=== PATIENT | female | born 1985 | race Caucasian/White ===

== ENCOUNTER → 2017-11-26 14:29 | Outpatient (CLI) | payer OTHER, SELFPAY ==
[2017-11-26 15:11] LABS: Estimated Glomerular Filt Rate > 60.0 mL/min (>60)
--- NOTE | 2017-11-26 15:16 | DI.CT.S_ITS ---
PROCEDURE: CT ABDOMEN PELVIS W CON INDICATIONS: Evaluation of acute pelvic pain TECHNIQUE: After the administration of oral and intravenous contrast, 5 mm thick sections acquired from the diaphragms to the symphysis. 5 mm thick coronal and sagittal reformats were performed. For radiation dose reduction, the following was used: automated exposure control, adjustment of mA and/or kV according to patient size. COMPARISON: [facility] [employer] [facility], US, US PELVIC COMPLETE, 11/25/2017, 17:38. FINDINGS: Image quality: Excellent. ABDOMEN: Lung bases: Linear scarring/atelectasis in anterior aspect of left lung base is seen. Bilateral lung bases otherwise clear Heart size is normal. Solid organs: Liver is normal in size and enhancement. Gallbladder is within normal limits. Biliary system is non-dilated. Pancreas enhances normally. Spleen is normal in size and enhancement. No adrenal nodules. Kidneys are normal in size and enhancement, without hydronephrosis. Small bilateral peripelvic renal cysts are seen. Peritoneum and bowel: Stomach, small bowel, and colon loops are normal in caliber and wall thickness. No free fluid or air. Mild fecal stasis in the colon is seen. Appendix is visualized and is within normal limits. Nodes and vessels: No retroperitoneal or mesenteric adenopathy. Aorta and inferior vena cava are normal in caliber. Miscellaneous: No ventral hernias. PELVIS: Genitourinary: Bladder wall thickness is normal. Uterus and bilateral adnexa show no gross abnormality. Miscellaneous: No inguinal hernias or adenopathy. Bones: No suspicious bony lesions. No vertebral body compression fractures. IMPRESSION: 1. No finding to explain patient's clinical symptoms of worsening pelvic pain. 2. No acute inflammatory process within abdomen or pelvis. No free fluid or free air. Dictated by: Albert eHr M.D. on 11/27/2017 at 9:00 Approved by: Albert Her M.D. on 11/27/2017 at 9:03
== END ==
PROVIDERS: Family Provider Family Medicine; PCP Family Medicine; Visit Provider Obstetrics & Gynecology
DX: R10.2 Pelvic and perineal pain (principal); R10.31 Right lower quadrant pain
CPT/HCPCS: 36415; 74177; 82565; Q9967

== ENCOUNTER → 2017-11-27 14:32 | Outpatient (CLI) | payer OTHER, SELFPAY ==
[2017-11-27 14:52] LABS: Add Manual Diff / Slide Review NO; Eosinophils Percent Auto 1.8 % (2-4); Hematocrit 42.6 % (36-46); Hemoglobin 14.3 g/dL (12.0-16.0); Lymphocytes Percent Auto 30.9 % (25-40); Mean Corpuscular HGB Conc 33.5 % (30-36); Mean Corpuscular Hemoglobin 30.7 PG (26-34); Mean Corpuscular Volume 91.5 fL (80-100); Monocytes Percent Auto 7.6 % (3-14); Neutrophils Absolute Auto 4600 /uL (3000-5900); Neutrophils Percent Auto 58.7 % (50-75); Platelet Count 328 X10^3/uL (150-400); Red Blood Cell Count 4.65 X10^6/uL (4.0-5.2); Red Cell Distribution Width 13.4 % (11.6-14.8); White Blood Cell Count 7.8 X10^3/uL (4.5-11.0)
== END ==
PROVIDERS: PCP Family Medicine; Visit Provider Obstetrics & Gynecology
DX: R10.13 Epigastric pain (principal)
CPT/HCPCS: 85025

== ENCOUNTER → 2019-09-12 11:57 | Outpatient (CLI) | payer BC, SELFPAY ==
[2019-09-12 12:50] LABS: C-Reactive Protein Quant < 0.5 mg/dL (<1.0)
[2019-09-12 13:03] LABS: Erythrocyte Sedimentation Rate 1 MM/HR (0-20)
[2019-09-12 13:53] LABS: Folate > 20.0 ng/mL (2.76-20.0); Vitamin B12 316 pg/mL (239-931)
[2019-09-12 15:24] LABS: Vitamin D 25 Hydroxy (D3) 42.2 ng/mL (30.0-100.0)
== END ==
PROVIDERS: Family Provider Family Medicine; PCP Family Medicine; Referring Provider Family Medicine; Visit Provider Family Medicine
DX: R53.83 Other fatigue (principal)
CPT/HCPCS: 36415; 82306; 82607; 82746; 85651; 86140

== ENCOUNTER → 2019-10-03 15:38 | Outpatient (CLI) | payer BC, SELFPAY ==
--- NOTE | 2019-10-03 15:41 | DI.MRI.S_ITS ---
PROCEDURE: MR LUMBAR SPINE WO CON INDICATIONS: Progressive low back pain with right lower extremity symptom TECHNIQUE: Noncontrast sagittal T1 spin echo and T2 fast echo, sagittal STIR, axial T1 and T2 fast spin echo through the lumbar spine. In cases with scoliosis, additional coronal T2 fast spin echo may be performed. COMPARISON: [facility], , L-SPINE WITHOUT CONTRAST, 11/24/2016, 15:27. FINDINGS: Image quality: Excellent. Alignment and Curvature: There is normal bony alignment. Bone Marrow: Marrow is of normal overall signal. No acute vertebral body compression fractures. Spinal Cord: Conus medullaris terminates at the L2 level. Visualized cord demonstrates normal signal and size. Paraspinous Soft Tissues: No paravertebral masses. L1-L2: Normal appearance. L2-L3: Normal appearance. L3-L4: Normal appearance. L4-L5: Minimal disc bulge without spinal stenosis or foraminal narrowing. L5-S1: Normal appearance. IMPRESSION: 1. Stable interval exam demonstrating mild disc bulge at L4-5. No spinal stenosis or foraminal narrowing. Dictated by: Olga Linn M.D. on 10/03/2019 at 16:48 Approved by: Olga Linn M.D. on 10/03/2019 at 16:50
--- NOTE | 2019-10-03 15:41 | DI.RAD.S_ITS ---
PROCEDURE: XR LUMBAR SPINE MIN 4V INDICATIONS: Progressive low back pain TECHNIQUE: 5 views of the lumbar spine acquired. COMPARISON: [facility], , L-SPINE MINIMUM 4 VIEWS, 11/17/2016, 12:39. FINDINGS: Bones: 5 nonrib-bearing vertebrae are present. Trace multilevel retrolisthesis. Mild multilevel disc degeneration. No pars interarticularis defect. No vertebral body compression fractures. No suspicious bony lesions. Soft tissues: Overlying bowel gas pattern is normal. No suspicious soft tissue calcifications. IMPRESSION: Trace multilevel retrolisthesis and mild multilevel disc degeneration. Dictated by: Neel Reddy [facility] Interpreted: Omega Sinha MD on 10/03/2019 at 16:34 Approved by: Omega Sinha M.D. on 10/03/2019 at 17:40
== END ==
PROVIDERS: Family Provider Family Medicine; PCP Family Medicine; Referring Provider Physical Medicine & Rehabilitation; Visit Provider Physical Medicine & Rehabilitation
DX: M54.5 Low back pain (principal); R10.2 Pelvic and perineal pain; M47.27 Other spondylosis with radiculopathy, lumbosacral region; M51.16 Intervertebral disc disorders with radiculopathy, lumbar region
CPT/HCPCS: 72110; 72148

== ENCOUNTER → 2019-12-12 13:37 | Outpatient (CLI) | payer BC, SELFPAY ==
[2019-12-13 06:50] LABS: COVID19 Sendout Not Detected (Not Detect)
== END ==
PROVIDERS: Family Provider Family Medicine; PCP Family Medicine; Visit Provider Physician Assistant
DX: Z01.812 Encounter for preprocedural laboratory examination (principal)
CPT/HCPCS: 87635

== ENCOUNTER 2019-12-15 09:59 | Outpatient (CLI) | payer BC, SELFPAY ==
[2019-12-15] VITALS (8 sets, daily range): BP systolic 116–157; BP diastolic 71–104; PULSE 74–90; RESP 10–20; TEMP 36.3; O2SAT 98–100
--- NOTE | 2019-12-15 10:00 | DI.RAD.S_ITS ---
PROCEDURE: PAIN L/S FACET INJ/BLK 1ST BROWN COMPARISON: [facility], CR, XR LUMBAR SPINE MIN 4V, 10/03/2019, 16:08. INDICATIONS: SPONDYLOSIS FINDINGS: On this intraprocedural study, bilateral spinal needles are seen at the L4-5 level and the L5-S1 level. Appropriate positions of the tips of the needles was confirmed with injection of a small amount of iodinated contrast. IMPRESSION: Intraprocedural examination within normal limits. Dictated by: Rodri Julien M.D. on 12/15/2019 at 11:28 Approved by: Rodri Julien M.D. on 12/15/2019 at 11:29
[2019-12-15] MEDS: fentaNYL 100 MCG/2 ML INJ 50 MCG IV (11:11)
[2019-12-15] MEDS: BETAMETHASONE 30 MG/5 ML MDV 12 MG INJ (11:11)
[2019-12-15] MEDS: BUPIVACAINE 0.5% (PF) VIAL 2 ML INJ (11:11)
[2019-12-15] MEDS: LIDOCAINE 1% 20 ML 10 ML INJ (11:11)
[2019-12-15] MEDS: IOPAMIDOL 15 ML VIAL 3 ML INJ (11:11)
[2019-12-15] MEDS: MIDAZOLAM 5 MG/5 ML VIAL IV (11:15)
--- NOTE | 2019-12-15 11:30 | P.PCN_ITS ---
Date/Time/Diagnoses Date of procedure: 12/15/19 Time of procedure: 11:30 Pre-procedure diagnosis: 1. FACET ARTHROPATHY 2. AXIAL LBP 3. MULTILEVEL DDD Post-procedure diagnosis: same Procedure Notes Procedure: 1. FLUOROSCOPICALLY GUIDED CONTRAST CONTROLLED FACET JOINT INJECTIONS BILATERAL L4/5, L5/S1 Indications: Niesha is referred by Dr. Iyer for treatment of Axial LBP Physician: Faraz Connell Total Fluoroscopy time (seconds): 12 Total sedation minutes: 17 Complications: none Procedure in detail & Post-procedure care: FINDINGS Multilevel Facet Arthropathy with Clinically significant axial LBP DESCRIPTION OF PROCEDURE Fluoroscopically guided, contrast-controlled bilateral L4/5, L5/S1 facet joint injections. Following review of allergy and review of potential side effects and complications, including, but not necessarily limited to, infection, allergic reaction, local tissue breakdown, stroke, temporary or permanent nerve injury, paralysis, and possible , the patient indicated that the patient understood and agreed to proceed. An informed consent document was signed by the patient, witnessed by a nurse, and placed in the patient's chart. Additionally, other treatment options including medications, modalities, and physical therapy were reviewed with the patient. After review of previous anaesthesic history and IV conscious sedation the patient was deemed safe to proceed with today?s procedure with IV conscious sedation as ASA class II designation. Safety time-out was performed to confirm patient ID, procedure to be performed and site of procedure. IV sedation was accomplished with a combination of 4mg of Versed and 50mcg of Fentanyl was administered by the RN after DO order, titrated to patient comfort during the course of the procedure while the patient remained responsive to all verbal commands In the prone position, following sterile prep and drape of the lumbar region, the posterior aspect of the L4/5, L5/S1 facet joints were identified fluoroscopically. The skin was anesthetized via a 25-gauge 1.5inch needle with 1% lidocaine solution into the corresponding facet joints. At this point, a 22- gauge 3.5-inch spinal needle was atraumatically introduced and advanced under fluoroscopic guidance into the corresponding facet joints. Following negative aspiration, injections of approximately 0.2cc of Isovue 200 confirmed intera rticular placement without vascular uptake. The identical procedure was then performed at the L4/5, L5/S1 facet joints on the left. Radiological data, including multiple fluoroscopic views of the lumbosacral spine, reveal a spinal needle at the L4/5, L5/S1 facet joints bilaterally. Subsequent views show flow of contrast material both superiorly and inferiorly within the joint space without vascular or intrathecal uptake. At this point, a total of 0.5cc including a mixture of 0.25cc Marcaine and 0.25cc betamethasone was injected without complication into each of the corresponding facet joints. The patient tolerated the procedure well without signs or symptoms of complications prior to transfer to the recovery area continued monitoring without incident. The patient was then transferred to the recovery area where they were observed for an appropriate period of time after the injection. The patient reported a VAS score of 6 prior to the procedure and a post- procedure VAS of 0. POST OP INSTRUCTIONS The patient was provided a Pain Log to continue to record their response to the target-specific procedure prior to follow-up visit with their referring physician. Additionally, specific post-injection care instructions and a contact number to our office were provided if concerns arise regarding possible complications associated with the procedure are suspected.
== END 2019-12-15 12:00 | disposition home or self-care (01) ==
LOC: RAD 10:00
PROVIDERS: Family Provider Family Medicine; PCP Family Medicine; Referring Provider Family Medicine; Visit Provider Physical Medicine & Rehabilitation
DX: M47.816 Spondylosis without myelopathy or radiculopathy, lumbar region (principal); M47.817 Spondylosis without myelopathy or radiculopathy, lumbosacral region; M54.5 Low back pain; M51.36 Other intervertebral disc degeneration, lumbar region; M51.37 Other intervertebral disc degeneration, lumbosacral region
CPT/HCPCS: 64493; 64494; 99152; J0702; J2250; J3010

== ENCOUNTER → 2020-01-13 09:13 | Outpatient (CLI) | payer BC, SELFPAY ==
--- NOTE | 2020-01-13 09:13 | DI.MRI.S_ITS ---
PROCEDURE: MR HIP RT WO CON INDICATIONS: right hip pain, possible chrondral lesion TECHNIQUE: Noncontrast coronal T1 spin echo and STIR through the bony pelvis. Coronal and axial T2 fast spin echo with fat saturation, sagittal T1 spin echo, and oblique axial T2 fast spin echo with fat saturation through the hip. COMPARISON: [facility], CT, CT ABDOMEN PELVIS W CON, 11/26/2017, 16:23. [facility] [place], CR, XR PELVIS WITH BILATERAL LATERAL HIPS, 01/06/2017, 9:24. FINDINGS: Image quality: Excellent. Bones and joints: There is curvilinear subchondral region of high T2 and low T1 signal intensity within the superior aspect of the right femoral head, spanning roughly 30 mm anteroposterior by 20 mm transverse by 6 mm craniocaudal. The visualized lower lumbar spine appears normally aligned. Tendons and ligaments: The gluteus medius and minimus tendons appear intact, without associated muscle atrophy. The nearby proximal iliotibial band also appears intact. The iliopsoas tendon appears intact, without adjacent bursal fluid collections or evidence for impingement syndrome. The origin of the hamstring tendon is intact at the ischial tuberosity, as well as the associated sacrotuberous ligament. The straight and reflected heads of the rectus femoris muscle origin appear intact, as well as the conjoint tendon. The ligamentum teres appears intact where visualized. Labrum and cartilage: Linear high T2 signal intensity traverses the right hip anterosuperior labrum. Cartilage surface of the femoral head appears of normal thickness. The alpha angle of the femur is within normal limits at less than 55 degrees. Soft tissues: Visualized muscles demonstrate normal bulk and internal signal. Quadratus femoris muscle demonstrates no internal edema to suggest ischiofemoral impingement. The proximal sciatic neurovascular bundle appears normal adjacent to the hamstring tendons. No free pelvic fluid. Bladder wall thickness is normal. Genitourinary structures and bowel loops appear normal where visualized. IMPRESSION: 1. Avascular necrosis of the right femoral head without evidence of subchondral collapse. 2. Probable right hip labral tearing which could be confirmed with MRI arthrography, if clinically indicated. Dictated by: Jamey Torres M.D. on 01/13/2020 at 9:02 Approved by: Jamey Torres M.D. on 01/13/2020 at 9:07
== END ==
PROVIDERS: Family Provider Family Medicine; PCP Family Medicine; Referring Provider Physical Medicine & Rehabilitation; Visit Provider Physical Medicine & Rehabilitation
DX: M87.851 Other osteonecrosis, right femur (principal)
CPT/HCPCS: 73721

== ENCOUNTER → 2020-09-05 15:45 | Outpatient (CLI) | payer BC, SELFPAY ==
--- NOTE | 2020-09-05 15:46 | DI.RAD.S_ITS ---
PROCEDURE: XR ANKLE RT MIN 3V INDICATIONS: RIGHT ANKLE INJURY TECHNIQUE: 3 views of the ankle were acquired. COMPARISON: None. FINDINGS: Bones: No acute fractures or dislocations. Ankle mortise is normally aligned. No suspicious bony lesions. Soft tissues: There is lateral malleolar soft tissue swelling. No tibiotalar joint effusion. Achilles tendon appears normal. IMPRESSION: Lateral malleolar soft tissue edema. No underlying fracture or dislocation. If there is persistent clinical concern for occult fracture given adequate mechanism of injury, consider repeat imaging in 10-14 days. Dictated by: Teodoro Wright M.D. on 09/05/2020 at 16:39 Approved by: Teodoro Wright M.D. on 09/05/2020 at 16:40
== END ==
PROVIDERS: Family Provider Family Medicine; PCP Family Medicine; Referring Provider Family Medicine; Visit Provider Family Medicine
DX: S99.911A Unspecified injury of right ankle, initial encounter (principal); M79.89 Other specified soft tissue disorders; X58.XXXA Exposure to other specified factors, initial encounter
CPT/HCPCS: 73610

== ENCOUNTER → 2020-10-09 16:41 | Outpatient (CLI) | payer BC, SELFPAY ==
[2020-10-09 17:46] LABS: C-Reactive Protein Quant < 0.5 mg/dL (<1.0)
[2020-10-09 17:50] LABS: Erythrocyte Sedimentation Rate 1 MM/HR (0-20)
== END ==
PROVIDERS: Family Provider Family Medicine; PCP Family Medicine; Referring Provider Family Medicine; Visit Provider Family Medicine
DX: R19.7 Diarrhea, unspecified (principal); M25.859 Other specified joint disorders, unspecified hip; M47.816 Spondylosis without myelopathy or radiculopathy, lumbar region; M87.00 Idiopathic aseptic necrosis of unspecified bone
CPT/HCPCS: 36415; 85651; 86140; 87045; 87177; 87899

== ENCOUNTER → 2020-11-02 09:46 | Outpatient (CLI) | payer BC, SELFPAY ==
--- NOTE | 2020-11-02 | DI.RAD.S_ITS ---
PROCEDURE: XR DEXA AXIAL SKELETON INDICATIONS: avascular necrosis, rule out regional osteoporosis COMPARISON: None. FINDINGS: This blank DEXA report has been sent in error by the PACS system. The correct and complete report will be forthcoming in 1-2 days. Thank you for your patience and understanding. Dictated by: Jamey Torres M.D. on 11/02/2020 at 16:39 Approved by: Jamey Torres M.D. on 11/12/2020 at 10:36
== END ==
PROVIDERS: Family Provider Family Medicine; PCP Family Medicine; Referring Provider Nurse Practitioner Family; Visit Provider Nurse Practitioner Family
DX: M87.00 Idiopathic aseptic necrosis of unspecified bone (principal); M85.852 Other specified disorders of bone density and structure, left thigh
CPT/HCPCS: 77080

== ENCOUNTER → 2020-11-20 10:23 | Outpatient (CLI) | payer BC, SELFPAY | PROVIDERS: Family Provider Family Medicine; PCP Family Medicine; Visit Provider Physician Assistant | DX: R30.0 Dysuria (principal) | CPT/HCPCS: 87077; 87086; 87186 ==

== ENCOUNTER 2020-11-22 09:23 | Emergency (ER) | payer BC, SELFPAY ==
[2020-11-22 09:25] VITALS: BP 167/78; PULSE 94; RESP 14; TEMP 36; O2SAT 98; BMI 22.9
--- NOTE | 2020-11-22 09:40 | ED_ITS ---
HPI - Female Genitourinary General Chief complaint: Urogenital-Female Stated complaint: Severe back pain- on antibiotics for UTI Time Seen by Provider: 11/22/20 09:30 Source: patient Mode of arrival: Ambulatory Limitations: no limitations History of Present Illness HPI Narrative: 35-year-old female nonsmoker presents with the chief complaint of a few days of urinary complaints such as dysuria, frequency, urgency and hematuria and now back pain. She went to the walk-in clinic and had her urine tested, which was not immediately terribly convincing but she was called this morning due to a positive culture noting E coli. She denies nausea, vomiting or diarrhea. She has had no fever or chills. She does have back pain that seems to be worse when she moves and improves with rest. She denies any radiation of the pain. Related Data Home Medications Medication Instructions Recorded Confirmed dupilumab 200 mg/1.14 mL 200 mg SUBCUT Q2W 03/14/19 09/05/20 subcutaneous syringe (Dupixent) naproxen sodium 220 mg capsule 220 mg PO BID PRN 01/05/20 09/05/20 (Aleve) Previous Rx's Medication Instructions Recorded tizanidine 2 mg tablet 2 mg PO TID PRN #60 tab 11/28/19 nitrofurantoin 100 mg PO Q12H 5 Days #10 cap 11/20/20 monohydrate/macrocrystals 100 mg capsule (Macrobid) phenazopyridine 100 mg tablet 100 mg PO TID PRN #6 tab 11/20/20 (Pyridium) cefuroxime axetil 500 mg tablet 500 mg PO BID #14 tab 11/22/20 hydrocodone 5 mg-acetaminophen 325 1 tab PO Q4-6H PRN #10 tab 11/22/20 mg tablet ketorolac 10 mg tablet 10 mg PO Q6H PRN #14 tab 11/22/20 ondansetron 4 mg disintegrating 4 mg PO TID-QID PRN #10 tab 11/22/20 tablet Allergies Allergy/AdvReac Type Severity Reaction Status Date / Time No Known Drug Allergies Allergy Verified 11/22/20 09:29 Review of Systems Review of Systems Narrative: GENERAL: See HPI HEENT: Denies sinus pain, ear pain, sore throat, difficulty swallowing, dizziness. RESPIRATORY: Denies dyspnea, cough, wheezing, hemoptysis, sputum. CARDIOVASCULAR: Denies chest pain, palpitations, orthopnea, edema, GASTROINTESTINAL: See HPI : See HPI. MUSCULOSKELETAL: denies weakness, joint pain, or bony pain SKIN: Denies rash, skin lesions, or other NEUROLOGIC: Denies weakness, headache, numbness, change in speech, confusion, seizures, incoordination. PSYCHIATRIC: No concerning psychosocial issues. 12 point review of systems is negative except for those stated above Patient History Medical History Avascular necrosis Facet arthropathy, lumbar Femoral acetabular impingement Lumbosacral spondylosis with radiculopathy Surgical History Status post laparoscopy (10/31/16) Family History Mother Heart disease alcohol intake frequency: holidays/special occasions only Substance Use Type: does not use Exam Narrative Exam Narrative: GENERAL: [35 year old patient appears stated age. Well-developed patient, in mild distress. HEAD: Atraumatic. Normocephalic. EYES: Pupils equal round and reactive. Extraocular motions intact. No scleral icterus. No injection or drainage. ENT: Nose without bleeding, purulent drainage. Throat without erythema, tonsill ar hypertrophy or exudate. Airway patent. NECK: Trachea midline. Non tender CARDIOVASCULAR: Regular rate and rhythm without murmurs, gallops, or rubs. RESPIRATORY: Clear to auscultation. Breath sounds equal bilaterally. No wheezes, rales, or rhonchi. GASTROINTESTINAL: Abdomen soft, non-tender, nondistended. EXTREMITIES: No edema or joint tenderness. BACK: Nontender without deformity or crepitance. No flank tenderness. NEURO: AOx3. SKIN: No rash or erythema of visible areas Initial Vital Signs Initial Vital Signs: Vital Signs Temperature 96.8 F L 11/22/20 09:25 Pulse Rate 94 H 11/22/20 09:25 Respiratory Rate 14 11/22/20 09:25 Blood Pressure 167/78 H 11/22/20 09:25 Pulse Oximetry 98 11/22/20 09:25 Course Orders Ordered: Discontinued Medications Ketorolac Tromethamine (Ketorolac 30 Mg/Ml Vial) 30 mg IM NOW ONE Stop: 11/22/20 09:35 Last Admin: 11/22/20 10:13 Dose: 30 mg Documented by: TANA Vital Signs Vital signs: Vital Signs - 8 hr 11/22/20 09:25 Temperature 96.8 F L Pulse Rate 94 H Respiratory Rate 14 Blood Pressure 167/78 H Pulse Oximetry 98 MDM - Female Genitourinary Lab Data Labs: Lab Results 11/22/20 Range/Units 09:39 Urine Color Yellow Urine Appearance Sl cloudy Urine pH 6.5 (4.5-8.0) Ur Specific [place] 1.025 (1.000-1.035) Urine Protein 2+ H (Negative) Urine Glucose (UA) Trace H (Negative) g/dL Urine Ketones Trace H (NEGATIVE) Urine Occult Blood 1+ H (Negative) Urine Nitrate Positive H (Negative) Urine Bilirubin Negative (NEGATIVE) Urine Urobilinogen 1.0 (0.2) E.U./dL Ur Leukocyte Esterase Trace H (NEGATIVE) Urine RBC 1-5/hpf (0-5/HPF) Urine WBC 30-100/hpf H (0-5/HPF) Ur Squamous Epith Cells 1-5 /hpf (0-5/HPF) Urine Bacteria Many (>30) H (None) Urine Mucus 1+ H (Negative) Ur Culture Indicated? Specimen cultured Imaging Data US Renal: Radiologist's Impression: Launch?[place] [address] Ultrasound Report Signed Patient: Niesha Sy MR#: [id number] : 1985 Acct:[id number] Age/Sex: 35 / F Date of Service: 11/22/20 Loc: ED Accession Number: [id number] ?? Procedure: US renal complete Ordering Provider: Mendoza Tucker D.O. PROCEDURE:? US RENAL COMPLETE ? INDICATIONS:? FLANK PAIN AND HEMATURIA ? TECHNIQUE:? Real-time scanning was performed of the kidneys and bladder, with image documentation.? ? COMPARISON:? [facility], CT, CT ABDOMEN PELVIS W CON, 11/26/2017, 16:23. ? FINDINGS:? ? Kidneys:? Kidneys are normal in size.? Right kidney measures 10.7 cm long; left kidney measures 11.3 cm long.? Right renal cortical thickness is 1.1 cm; left renal cortical thickness is 1.6 cm.? Renal cortical echotexture is normal.? No hydronephrosis or nephrolithiasis.? No suspicious solid mass lesions.? ? Bladder:? Pre-void bladder volume is 135 mL.? Post-void residual is 0 mL.? Pre- void images demonstrate no intraluminal masses or stones.? On pre-void images, both ureteral jets are noted with color Doppler interrogation.? (Of note, ureteral jets may not be detectable in up to 25% of cases due to insufficient differences in specific gravity between ureteral and bladder urine).? ? Miscellaneous:? No free pelvic fluid.? ? ? IMPRESSION:? Normal the ultrasound study, without hydronephrosis or shadowing stones seen. ? For further evaluation of the patient's presenting history of hematuria, please consider a dedicated hematuria protocol CT without and with contrast (assuming that there is no contraindication).? Dictated by: Rodri Julien M.D. on 11/22/2020 at 9:52 ? ? Approved by: Rodri Julien M.D. on 11/22/2020 at 9:53 ? MDM Narrative Medical decision making narrative: 35-year-old female well appearing with a few days of urinary complaints and subsequent development of systemic symptoms. Urine culture is noted E coli, flank pain is reproducible and with well controlled. She shows no sign of sepsis, pain is controlled and she is tolerating orals. Ultrasound, physical exam and history was suggest unlikely kidney stone. Return precautions given and questions answered to her apparent satisfaction Discharge Plan Departure Patient Disposition: Home Clinical Impression: Pyelonephritis Instructions: DI for Kidney Infection Activity Restrictions/Additional Instructions: *You have been diagnosed with [urinary symptoms and back pain most consistent with kidney infection. Your physical exam and ultrasound would suggest against kidney stone *What to do: * please stop taking the antibiotic you had been given at the walk-in clinic as it will not help with pyelonephritis. Otherwise, continue to take yo ur regular medications as directed. [x ] New medication prescriptions sent to your pharmacy: [[facility] ] [ ] New medication written as a paper prescription [ ] No new medications given *Please follow up with your primary care provider in 2-3 days, call for an appointment. Let them know you were seen in the Emergency Department and that we ask that you be seen in follow up. We will electronically transmit a record of today's note if your PCP is in our system *If you do not have a primary care provider please contact the [facility] Resource line at [phone]. They will ask some questions about your medical history and help get you set up with a doctor in the community. *Return to Emergency Department if you should have any new, worsening or concerning symptoms, such as [fever greater than 101 F, shaking chills, worsening pain, persistent vomiting or other bothersome symptoms] You have been prescribed a short course of narcotic medications. These are potentially dangerous and addictive medications that should be used carefully. While on these medications you cannot drive or operate heavy machinery. Additionally, you cannot sign legal documents or perform any duties such as this. 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 Please understand that we cannot provide further refills of narcotics or controlled substances through the ED and your pain management will need to be through your Primary Care Provider Prescriptions: New hydrocodone-acetaminophen 5-325 mg tablet 1 tab PO Q4-6H PRN (Reason: pain) Qty: 10 RF: 0 ketorolac 10 mg tablet 10 mg PO Q6H PRN (Reason: pain) Qty: 14 RF: 0 cefuroxime axetil 500 mg tablet 500 mg PO BID Qty: 14 RF: 0 ondansetron 4 mg tablet,disintegrating 4 mg PO TID-QID PRN (Reason: nausea and vomiting) Qty: 10 RF: 0 No Action Dupixent Syringe 200 mg/1.14 mL syringe 200 mg SUBCUT Q2W RF: 0 nitrofurantoin monohyd/m-cryst [Macrobid] 100 mg capsule 100 mg PO Q12H 5 Days Qty: 10 RF: 0 phenazopyridine [Pyridium] 100 mg tablet 100 mg PO TID PRN (Reason: pain) Qty: 6 RF: 0 tizanidine 2 mg tablet 2 mg PO TID PRN (Reason: muscle spasticity) Qty: 60 RF: 1 naproxen sodium [Aleve] 220 mg capsule 220 mg PO BID PRNRF: 0 Referrals: Mello Iyer MD [Primary Care Provider] -
--- NOTE | 2020-11-22 09:55 | DI.US.S_ITS ---
PROCEDURE: US RENAL COMPLETE INDICATIONS: FLANK PAIN AND HEMATURIA TECHNIQUE: Real-time scanning was performed of the kidneys and bladder, with image documentation. COMPARISON: [facility], CT, CT ABDOMEN PELVIS W CON, 11/26/2017, 16:23. FINDINGS: Kidneys: Kidneys are normal in size. Right kidney measures 10.7 cm long; left kidney measures 11.3 cm long. Right renal cortical thickness is 1.1 cm; left renal cortical thickness is 1.6 cm. Renal cortical echotexture is normal. No hydronephrosis or nephrolithiasis. No suspicious solid mass lesions. Bladder: Pre-void bladder volume is 135 mL. Post-void residual is 0 mL. Pre-void images demonstrate no intraluminal masses or stones. On pre-void images, both ureteral jets are noted with color Doppler interrogation. (Of note, ureteral jets may not be detectable in up to 25% of cases due to insufficient differences in specific gravity between ureteral and bladder urine). Miscellaneous: No free pelvic fluid. IMPRESSION: Normal the ultrasound study, without hydronephrosis or shadowing stones seen. For further evaluation of the patient's presenting history of hematuria, please consider a dedicated hematuria protocol CT without and with contrast (assuming that there is no contraindication). Dictated by: Rodri Julien M.D. on 11/22/2020 at 9:52 Approved by: Rodri Julien M.D. on 11/22/2020 at 9:53
[2020-11-22 10:10] LABS: Appearance Urine UA SL CLOUDY; Bilirubin Urine UA NEGATIVE (NEGATIVE); Color Urine UA YELLOW; Glucose Urine UA TRACE g/dL (Negative); Ketones Urine UA TRACE (NEGATIVE); Leukocyte Esterase Urine UA TRACE (NEGATIVE); Nitrite Urine UA POSITIVE (Negative); Occult Blood Urine UA 1+ (Negative); Protein Urine UA 2+ (Negative); Specific Gravity Urine UA 1.025 (1.000-1.035)
[2020-11-22] MEDS: KETOROLAC 30 MG/ML VIAL IM (10:13)
[2020-11-22 10:19] LABS: pH Urine UA 6.5 (4.5-8.0)
[2020-11-22 10:31] LABS: Bacteria Urine Many (>30); Culture Indicated Urine Specimen Cultured; Mucus Urine 1+ (Negative); RBC Urine 1-5/HPF (0-5/HPF); Squamous Epithelial Cell Urine 1-5 /HPF (0-5/HPF); WBC Urine 30-100/HPF (0-5/HPF)
[2020-11-22 11:24] VITALS: BP 117/81; PULSE 73; RESP 18; O2SAT 98
== END 2020-11-22 11:35 | disposition home or self-care (01) ==
PROVIDERS: Emergency Provider Emergency Medicine; Family Provider Family Medicine; PCP Family Medicine
DX: N12 Tubulo-interstitial nephritis, not specified as acute or chronic (principal); R31.9 Hematuria, unspecified
CPT/HCPCS: 76770; 81001; 87086; 96372; 99283; J1885

== ENCOUNTER → 2021-03-20 10:09 | Outpatient (CLI) | payer BC, SELFPAY ==
[2021-03-20 14:16] LABS: COVID19 -Nasal RAPID Negative (Negative)
== END ==
PROVIDERS: Family Provider Family Medicine; PCP Family Medicine; Referring Provider Physician Assistant; Visit Provider Physician Assistant
DX: Z20.822 Contact with and (suspected) exposure to COVID-19 (principal); J02.9 Acute pharyngitis, unspecified
CPT/HCPCS: 87635

== ENCOUNTER → 2022-03-05 07:59 | Outpatient (CLI) | payer BC, SELFPAY ==
--- NOTE | 2022-03-05 08:01 | DI.US.S_ITS ---
PROCEDURE: US PELVIC COMPLETE INDICATIONS: PELVIC PAIN TECHNIQUE: Real-time scanning was performed of the pelvic organs, with image documentation. Additional endovaginal scanning was necessary due to incomplete visualization of the adnexal and endometrial structures by transabdominal scanning. COMPARISON: [facility], US, US PELVIC COMPLETE, 11/25/2017, 17:38. FINDINGS: Uterus: 7.8 x 5.3 x 4.1 cm. Anteverted. Endometrium measures 5 mm. There is a hyperechoic the a vascular area in the mid endometrium measuring 1.3 x 1 x 0.4 cm. There are nabothian cysts. Ovaries: Right ovarian volume is 3.3 cc. Left ovarian volume is 3 cc. Arterial and venous flows are documented. Less than 12 follicles are seen bilaterally. Other: No pathologic free fluid. IMPRESSION: Focal hyperechoic mid endometrial thickening/lesion measuring 1.3 x 1 x 0.4 cm, possibly a polyp, although there is no definite sonographic vascular stalk. Consider further evaluation with direct visualization or MRI if necessary. No sonographic abnormality of the ovaries. Dictated by: Zack Howell M.D. on 03/05/2022 at 9:17 Approved by: Zack Howell M.D. on 03/05/2022 at 9:21
== END ==
PROVIDERS: Family Provider Family Medicine; PCP Family Medicine; Referring Provider Obstetrics & Gynecology; Visit Provider Obstetrics & Gynecology
DX: N92.1 Excessive and frequent menstruation with irregular cycle (principal); R10.2 Pelvic and perineal pain; R93.89 Abnormal findings on diagnostic imaging of other specified body structures
CPT/HCPCS: 76830; 76856; 93975

== ENCOUNTER → 2022-03-13 15:37 | Outpatient (CLI) | payer BC, SELFPAY ==
--- NOTE | 2022-03-13 15:37 | DI.MRI.S_ITS ---
PROCEDURE: MR PELVIS WO/W CON INDICATIONS: Pelvic pain r/o endometrial polyp TECHNIQUE: Coronal HASTE, sagittal breath-hold T2 FSE; axial T1 FSE with and without fat saturation through the pelvis. Optional long- and short-axis uterine nonbreath-hold T2 FSE through the uterus. Sagittal or axial dynamic VIBE during administration of contrast. Post-contrast axial or coronal VIBE/2-D FLASH with fat saturation from the iliac crests to the symphysis. Optional diffusion weighted imaging and ADC may be performed. COMPARISON: [facility], CR, XR PELVIS WITH LATERAL HIP RIGHT, 01/31/2020, 16:58. [facility], US, US PELVIC COMPLETE, 03/05/2022, 8:11. FINDINGS: Image quality: Excellent. Uterus: Uterus is anteverted and measures 9 x 5.2 x 3.6 cm. Small subserosal fibroid at the fundus measuring 1.2 cm, (22/31). Endometrium is normal in thickness measuring 1.1 cm. No endometrial polyp is identified. Junctional zone is normal in thickness at 12 mm or less. Small nabothian cysts. Adnexa: Both ovaries are normal in size, without suspicious cystic or solid lesions. Left T2 hyperintense cyst measuring 2.3 cm. Urinary system: Bladder is decompressed. Distal ureters are non distended. Urethra appears normal in morphology. Nodes and vessels: No pelvic or inguinal adenopathy by size criteria. Iliac vessels are normal in size. Bowel and peritoneum: No pathologic free pelvic fluid. Inferior colon and small bowel loops are normal in caliber. Soft tissues: No inguinal hernias. No findings of pelvic floor incompetence in the absence of provocation. Bones: Marrow demonstrates normal overall signal. IMPRESSION: 1. No endometrial polyp is identified. Endometrium measures 1.1 cm in thickness. This clinically indicated is saline infusion sonohysterogram could be considered for further evaluation. 2. Small subserosal fibroid at the fundus measuring 1.2 cm. 3. Simple left ovarian cyst measuring 2.3 cm. Dictated by: Yemi Rawls M.D. on 03/13/2022 at 16:56 Approved by: Yemi Rawls M.D. on 03/13/2022 at 17:06
== END ==
PROVIDERS: Family Provider Family Medicine; PCP Family Medicine; Referring Provider Obstetrics & Gynecology; Visit Provider Obstetrics & Gynecology
DX: D25.2 Subserosal leiomyoma of uterus (principal); N83.292 Other ovarian cyst, left side; R10.2 Pelvic and perineal pain; R93.89 Abnormal findings on diagnostic imaging of other specified body structures; N85.9 Noninflammatory disorder of uterus, unspecified; N93.9 Abnormal uterine and vaginal bleeding, unspecified; N94.89 Other specified conditions associated with female genital organs and menstrual cycle
CPT/HCPCS: 72197

== ENCOUNTER 2022-06-12 07:46 | Day surgery (SDC) | payer BC, SELFPAY ==
[2022-04-30 14:31] VITALS: BMI 24.2
[2022-06-12] VITALS (10 sets, daily range): BP systolic 108–130; BP diastolic 50–88; PULSE 73–97; RESP 12–20; TEMP 36.2–36.4; O2SAT 96–100; BMI 24.2
--- NOTE | 2022-06-12 | PATH_ITS ---
[facility] Accession Number: [id number] No. of containers..01 Tissue . 01 Material submitted: . uterus - UTERUS AND BILATERAL FALLOPIAN TUBES WITH RIGHT WALL CYST . 01 Diagnosis: Uterus and Bilateral Fallopian Tubes and Right Wall Cyst (laparoscopic supracervical hysterectomy, bilateral salpingectomy, and right cystectomy, weight 57 grams): Dys-synchronous endometrium with a benign endometrial cyst (13 mm); negative for glandular hyperplasia, cytologic atypia, or malignancy. Myometrium with two leiomyomas (3 mm and 4 mm in greatest dimension). Uterine serosa with no hisotmorphologic abnormality. Attached fallopian tube, complete cross sections, with a benign paratubal cyst (3 mm); negative for atypia. Detached fallopian tube, complete cross sections, with a benign paratubal cyst (3 mm); negative for atypia. Disrupted hemorrhagic corpus luteum cyst (13 x 7 x 7 mm). [facility] 06/18/2022 1020 Local . 01 Electronically signed: . Rebecca Kee MD, Pathologist NPI- [id number] . 01 Gross description: . The specimen is received in formalin labeled with the patient's name, , and uterus and bilateral fallopian tubes with right hemorrhagic cyst, and consists of a fragmented uterus (57 g, 9.7 x 7.2 x 4.6 cm in aggregate), with attached fimbriated fallopian tube (6.2 x 1.1 cm) and detached fimbriated fallopian tube (4.1 x 0.9 cm) with no cervix or additional adnexa identified. The serosa is friedman and smooth with no evidence of hemorrhage or adhesion identified. The endometrium is friedman to brown and velvety and averages 0.2 cm thick with a possible polypoid structure measuring 1.3 x 1.0 x 0.2 cm. The myometrium is friedman and trabecular with two well-circumscribed white whorled nodules ranging from 0.3 cm to 0.4 cm in greatest dimension with no hemorrhage or necrosis identified. No additional lesions are identified. The attached fallopian tube has congested smooth serosa with a small cystic structure near the fimbriated end measuring 0.3 cm in greatest dimension, filled with hemorrhagic material. Sectioning reveals an unremarkable stellate lumen. The detached fallopian tube has congested smooth serosa with a pedunculated cystic structure near the fimbriated end measuring 0.3 cm in greatest dimension, filled with brown serous fluid. Sectioning reveals an unremarkable stellate lumen. Also identified is an irregular brown soft tissue fragment possibly consistent with disrupted hemorrhagic cyst measuring 1.3 x 0.7 x 0.7 cm. [employer] Implementation Specialist sections are submitted as follows: A1: Endometrial polyp. A2: Additional endometrium. A3: Serosa. A4: Well-circumscribed nodules. A5: Attached fallopian tube to include one-half of bisected fimbriae and cross sections. A6: Detached fallopian tube to include one-half of bisected fimbriae, cross sections, and fragment of possible cystic structure. ([id number]) /FRR 06/14/2022 0948 Local . 01 Pathologist provided ICD-10: N83.201 . 01 CPT . 753294 Specimen Comment: A courtesy copy of this report has been sent to [phone] Performed at: 01 [facility] [address] [place] [address] [address] [facility], [place], [place] [id number] MD Arcenio Cohn MD Phone: [phone]
[2022-06-12] MEDS: LACTATED RINGERS 1,000 ML 42 ML IV (08:13)
[2022-06-12 08:27] LABS: COVID19 -Nasal RAPID Negative (Negative)
--- NOTE | 2022-06-12 10:08 | PM.GYNHP.1 ---
History of Present Illness History of Present Illness Reason for admission: vaginal bleeding and pelvic pain Narrative: Niesha Sy is a 36 year old female 0 who presents for a laparoscopic supracervical hysterectomy with bilateral salpingectomy due to abnormal uterine bleeding and persistent pelvic pain. [facility] Medical History Avascular necrosis Facet arthropathy, lumbar Femoral acetabular impingement Lumbosacral spondylosis with radiculopathy Surgical History Status post laparoscopy (10/31/16) Family History Mother Heart disease Social History marital status: unmarried,single household members: significant other Smoking Status: Current every day smoker alcohol intake: current substance use type: does not use Meds Home Medications and Allergies Home Medications Medication Instructions Recorded Confirmed Type dupilumab 200 mg/1.14 mL 200 mg SUBCUT Q2W 03/14/19 06/12/22 History subcutaneous syringe (Dupixent) Allergies Allergy/AdvReac Type Severity Reaction Status Date / Time No Known Drug Allergies Allergy Verified 06/12/22 08:03 Exam Vital Signs (past 8 hours): - 06/12/22 08:07 Temperature 97.4 F L Pulse Rate 92 H Respiratory Rate 20 Blood Pressure 108/79 Pulse Oximetry 98 Oxygen Delivery Method Room Air Oxygen Delivery Method Room Air Narrative Exam Narrative: HEENT: No thyromegaly, no anterior cervical or supraclavicular lymphadenopathy. Lungs:Clear to auscultation bilaterally, no wheezes. Cardiovascular: Regular rate and rhythm, no murmurs, rubs, or gallops. Abdomen: Well-healed laparoscopy scars. No hepatosplenomegaly. No masses palpable. External genitalia: Normal Vagina: Normal Cervix: Normal Bimanual exam: 6 Week size anteverted uterus. Mobile. Extremities: No edema Objective Labs Labs: Laboratory Results - last 24 hr 06/12/22 08:00 SARS-CoV-2 (PCR) Negative Assessment & Plan Assessment & Plan narrative: Assessment: 36-year-old 0 with persistent pelvic pain and abnormal uterine bleeding Plan: Laparoscopic supracervical hysterectomy with bilateral salpingectomy The risks, benefits, and alternatives to the procedure were explained to the patient. The risks including bleeding, infection, injury to the bowel, bladder, or ureters. She understands these risks and agrees to proceed. A full par Q was held and consent form was signed. Time Spent With Patient Time with patient: less than 30 minutes
--- NOTE | 2022-06-12 10:11 | PM.PREOP ---
Pre-operative Note COVID-19 Criteria for continued procedure: Non-surgical alternatives not available or appropriate per current SOC Interval Note History & Physical reviewed/Exam performed by Physician: Yes Changes to H&P: No H&P completed within 30 days and has changed as indicated here:: 06/12/22
[2022-06-12] MEDS: CEFAZOLIN 2 GM/100 ML PREMIX 100 ML IV (10:17)
[2022-06-12] MEDS: LACTATED RINGERS 1,000 ML 100 ML IV (11:22)
[2022-06-12] MEDS: ROPIVACAINE 0.2% PF 2 MG/ML 20ML AMP 20 ML INJ (11:24)
[2022-06-12] MEDS: BUPIVACAINE 0.5% (PF) 30 ML, EPINEPHrine 0.15 MG INJ (11:25)
--- NOTE | 2022-06-12 11:28 | SUR.OPER ---
Lithotomy on padded OR bed. [place] Pad Positioner under torso. Head on pillow, arms padded and tucked at sides. Legs secured in padded yellow fins stirrups.
[2022-06-12] MEDS: fentaNYL 100 MCG/2 ML INJ IV ×2 (12:25→12:38)
[2022-06-12] MEDS: OXYCODONE IR 5 MG TABLET PO ×2 (12:28→13:09)
--- NOTE | 2022-06-12 12:32 | SUR.PHASEI ---
Received to PACU after general anesthesia. Airway patent, self maintained. Report for STEVO Mackey and Dr Lagunas.
--- NOTE | 2022-06-12 12:41 | P.OP_ITS ---
Operative Date/Time/Diagnoses Date of procedure: 06/12/22 Time of procedure: 12:41 Pre-op diagnosis: Abnormal uterine bleeding Pelvic pain Post-op diagnosis: same Procedure & Clinicians Procedure: Procedures Operation Date: 06/12/22 09:15 Actual Procedure Side Surgeon p Laparoscopic Supracervical Hysterectomy w. bilateral salpingectomy with right hemmorragic cyst removal Ursula Samayoa MD Indications: Abnormal uterine bleeding Pelvic pain Surgeon: Ursula Samayoa Residential Green Building Designer: Albertina Bliss Anesthesia Type: General and Local Operative Notes Findings: 6 week size anteverted uterus And normal tubes Normal left ovary Hemorrhagic cyst on the right ovary Closure Type: primary Specimen(s): left tube, right tube, uterus and other (Hemorrhagic cyst of the right ovary) Applied: catheter (Removed in PACU) Estimated blood loss (mL): 20 Blood products transfused: none Procedure in detail: The patient was taken to the operating room where she was placed in the dorsal supine position. After adequate general endotracheal anesthesia was achieved, she was placed in the dorsal lithotomy position, and prepped and draped in the usual sterile fashion. A timeout was performed. A bivalve speculum was placed into the vagina and the anterior lip of the cervix grasped with a single-tooth tenaculum. The cervical os was sequentially dilated until the ZUMI uterine manipulator could pass easily into the endometrial cavity. The single-tooth tenaculum was removed from the anterior lip of the cervix, and the bivalve speculum was removed from the vagina. Attention was then turned to the abdomen where 6 mL of half percent Marcaine with epinephrine were injected in the umbilical fold. A 5 mm incision was made. The Verees needle was placed into the peritoneal cavity, and its placement confirmed by aspiration and drop test. The Verees needle was removed. A 5 mm trocar was placed without difficulty. 2 other incisions were made 4 cm lateral to the umbilicus after 5 mL of half perce nt Marcaine with epinephrine were injected. These were 5 mm incisions. Two 5 mm trocars were placed under direct visualization. The right tube was grasped with an atraumatic grasper. Using the Powerseal, the mesosalpinx was cauterized and cut all the way down to the cornua of the uterus. The cornua of the uterus was then grasped with an atraumatic grasper. The utero-ovarian ligaments were cauterized and cut. The round ligament and broad ligament was cauterized and cut. Hemostasis was achieved. The bladder flap was created using the Powerseal with cautery and cut alf across. The uterine arteries on the right side were extensively cauterized. All of this was repeated on the left side. The remainder of the bladder flap was created using the Powerseal, and the bladder taken down off the lower uterine segment and cervix. Using the [place], the cervix was amputated from the uterus 2 cm above the uterosacral ligaments, after the ZUMI uterine manipulator was removed from the uterus. There was no bleeding from the cervix. A sponge stick was placed into the vagina. 6 mL of half percent Marcaine with epinephrine were injected above the pubic symphysis. A 12 mm trocar was placed. An Endobag was placed through the suprapubic trocar and the uterus and ovaries were placed into the Endobag. The trocar was removed. The edges of the endobag were brought up through the skin. The uterus was grasped with a Reinier inside the bag. The David was placed into the endobag. The uterus and tubes were hand morcellated in approximately 10 pieces. The Endobag was removed from the peritoneal cavity with the David. The abdomen was re-insufflated. The pelvis was copiously irrigated with warm normal saline. No bleeding was noted. 20 cc of 0.2% ropivacaine were placed ov er the pedicles. The instruments were removed from the abdomen. The CO2 was allowed to escape. The suprapubic incision was closed on the fascia with 0 Vicryl. The subcutaneous layer of the suprapubic incision was closed with 2 simple interrupted sutures with 3-0 Vicryl. All of the incisions were closed with 4-0 Biosyn in a subcuticular fashion. Steri-Strips and Allevyn dressings were placed over the incisions. The moistened sponge stick was removed from the vagina. Sponge, lap, and instrument counts were correct x-2. The patient tolerated the procedure well, was taken to PACU in stable condition. Complications: none Post-operative Condition: stable Disposition: PACU Plan for aftercare: Home after recovery
[2022-06-12] MEDS: HYDROMORPHONE 2 MG INJ IV (12:55)
[2022-06-12] MEDS: ONDANSETRON 4 MG/2 ML INJ IV (12:56)
--- NOTE | 2022-06-12 13:52 | SUR.PHASEI ---
Pt up to commode and able to void.
--- NOTE | 2022-06-12 14:07 | SUR.PHASEII ---
PT states she is ready to go and states her pain is tolerable. Pt tolerating fluids. Pt says she wants to go home.
--- NOTE | 2022-06-12 14:16 | SUR.PHASEII ---
Called Dr. Samayoa and had her call in order for zofran and stool softner. Pt discharged with her boyfriend.
== END 2022-06-12 14:17 | disposition home or self-care (01) ==
PROVIDERS: Family Provider Family Medicine; PCP Family Medicine; Referring Provider Obstetrics & Gynecology; Visit Provider Obstetrics & Gynecology
PROC: 0UT94ZL Resection of Uterus, Supracervical, Percutaneous Endoscopic Approach (ICD-10-PCS; CPT 58542; principal; 2022-06-12 09:15)
DX: N93.9 Abnormal uterine and vaginal bleeding, unspecified (principal); Z20.822 Contact with and (suspected) exposure to COVID-19; N83.11 Corpus luteum cyst of right ovary; N83.8 Other noninflammatory disorders of ovary, fallopian tube and broad ligament; D25.9 Leiomyoma of uterus, unspecified; N85.8 Other specified noninflammatory disorders of uterus
CPT/HCPCS: 58542; 58662; 87635; C9803; J0171; J0690; J1100; J1170; J1885; J2250; J2405; J2704; J2795; J3010

== ENCOUNTER → 2022-08-07 16:10 | Outpatient (CLI) | payer BC, SELFPAY | PROVIDERS: Family Provider Family Medicine; PCP Family Medicine; Visit Provider Obstetrics & Gynecology | DX: R31.9 Hematuria, unspecified (principal) | CPT/HCPCS: 87086 ==

== ENCOUNTER → 2022-12-30 08:02 | Outpatient (CLI) | payer BC, SELFPAY ==
--- NOTE | 2022-12-30 08:03 | DI.RAD.S_ITS ---
PROCEDURE: XR LUMBAR SPINE MIN 4V INDICATIONS: BACK PAIN TECHNIQUE: 5 views of the lumbar spine were acquired, including bilateral oblique views. COMPARISON: [facility], , XR LUMBAR SPINE MIN 4V, 10/03/2019, 16:08. FINDINGS: Bones: 5 nonrib-bearing vertebrae are present. Exaggerated lumbar lordosis accentuated by trace retrolisthesis L2-3, L3-4, L4-5, and L5-S1. Disc spacing remains normal. No vertebral body compression fractures. No suspicious bony lesions. Soft tissues: Overlying bowel gas pattern is normal. No suspicious soft tissue calcifications. Oblique images: No pars defects. IMPRESSION: Trace multilevel retrolisthesis without progression since the prior study. Dictated by: Mayra Kinney M.D. on 12/30/2022 at 11:54 Approved by: Mayra Kinney M.D. on 12/30/2022 at 11:56
== END ==
PROVIDERS: Family Provider Family Medicine; PCP Family Medicine; Referring Provider Physical Medicine & Rehabilitation; Visit Provider Physical Medicine & Rehabilitation
DX: M47.27 Other spondylosis with radiculopathy, lumbosacral region (principal)
CPT/HCPCS: 72110

== ENCOUNTER → 2023-02-05 16:11 | Outpatient (CLI) | payer BC, SELFPAY ==
[2023-02-05 17:27] LABS: Add Manual Diff / Slide Review NO; Basophils Absolute Auto 100 /uL (0-100); Basophils Percent Auto 1.3 % (0-2); Eosinophils Absolute Auto 100 /uL (0-450); Eosinophils Percent Auto 1.1 % (2-4); Hematocrit 41.2 % (36-46); Hemoglobin 13.8 g/dL (12.0-16.0); Lymphocytes Absolute Auto 1200 /uL (1100-4500); Lymphocytes Percent Auto 19.7 % (25-40); Mean Corpuscular HGB Conc 33.6 % (30-36); Mean Corpuscular Hemoglobin 31.7 PG (26-34); Mean Corpuscular Volume 94.3 fL (80-100); Monocytes Absolute Auto 900 /uL (0-900); Monocytes Percent Auto 13.6 % (3-14); Neutrophils Absolute Auto 4000 /uL (1500-7000); Neutrophils Percent Auto 64.3 % (50-75); Platelet Count 270 X10^3/uL (150-400); Red Blood Cell Count 4.37 X10^6/uL (4.0-5.2); Red Cell Distribution Width 13.1 % (11.6-14.8); White Blood Cell Count 6.3 X10^3/uL (4.5-11.0)
[2023-02-05 18:41] LABS: Alanine Aminotransferase 20 IU/L (<35); Albumin 4.3 g/dL (3.5-5.0); Albumin Globulin Ratio 1.5 (1.0-2.8); Alkaline Phosphatase 60 U/L (38-126); Aspartate Aminotransferase 28 IU/L (14-36); BUN Creatinine Ratio 20.9 (6-22); Bilirubin Total 0.7 mg/dL (0.2-1.3); Blood Urea Nitrogen 14 mg/dL (7-17); Calcium 9.4 mg/dL (8.4-10.2); Carbon Dioxide 24 mmol/L (22-32); Chloride 102 mmol/L (98-107); Cholesterol 184 mg/dL (140-199); Estimated Glomerular Filt Rate > 60 mL/min (>60); Globulin 2.8 g/dL (1.7-4.1); Glucose 96 mg/dL (70-100); HEMOLYSIS < 15 (0-50); Potassium 3.9 mmol/L (3.4-5.1); Sodium 134 mmol/L (137-145); Total Protein 7.1 g/dL (6.3-8.2); Triglycerides 73 mg/dL (35-150)
[2023-02-05 19:00] LABS: TSH w/ Reflex to FT4 1.96 uIU/mL (0.47-4.68)
[2023-02-05 19:09] LABS: HDL Cholesterol 140 mg/dL (40-60); LDL Cholesterol Calculated 29 mg/dL (<100)
== END ==
PROVIDERS: Family Provider Family Medicine; PCP Family Medicine; Referring Provider Family Medicine; Visit Provider Family Medicine
DX: Z13.220 Encounter for screening for lipoid disorders (principal)
CPT/HCPCS: 36415; 80053; 80061; 84443; 85025

== ENCOUNTER → 2023-02-11 18:45 | Outpatient (CLI) | payer BC, SELFPAY ==
--- NOTE | 2023-02-11 18:47 | DI.MRI.S_ITS ---
PROCEDURE: MR HIP RT WO CON INDICATIONS: follow up avascular necrosis R hip 2019 TECHNIQUE: Noncontrast coronal T1 spin echo and STIR through the bony pelvis. Coronal and axial T2 fast spin echo with fat saturation, sagittal T1 spin echo, and oblique axial T2 fast spin echo with fat saturation through the hip. COMPARISON: [facility], MR, MR HIP RT WO CON, 01/13/2020, 9:19. FINDINGS: Image quality: Excellent. Bones and joints: Asymmetric moderate right hip joint osteoarthritic changes are seen with significant joint space narrowing, subchondral sclerosis and small lateral marginal osteophyte formation. Geographic area T2 hyperintense signal is again seen involving weight-bearing portion of right femoral head consistent with patient's known avascular necrosis in this area. Slight deformity involving weight-bearing portion of right femoral head is seen concerning for early collapse. No fracture or dislocation. No other area of abnormal marrow signal or suspicious intraosseous lesion. The visualized lower lumbar spine appears normally aligned. Tendons and ligaments: Distal right gluteus medius and minimus tendinosis at their insertions on greater trochanter is seen., without associated muscle atrophy. The nearby proximal iliotibial band also appears intact. The iliopsoas tendon appears intact, without adjacent bursal fluid collections or evidence for impingement syndrome. The origin of the hamstring tendon is intact at the ischial tuberosity, as well as the associated sacrotuberous ligament. The straight and reflected heads of the rectus femoris muscle origin appear intact, as well as the conjoint tendon. The ligamentum teres appears intact where visualized. Labrum and cartilage: Extensive signal abnormality and contour irregularity involving superior anterior labrum at 12 to 2 o'clock position is seen suggestive of superior anterior labral tear. Diffuse thinning of articulating cartilage over right femoral head is also seen. The alpha angle of the femur is within normal limits at less than 55 degrees. Soft tissues: Visualized muscles demonstrate normal bulk and internal signal. Quadratus femoris muscle demonstrates no internal edema to suggest ischiofemoral impingement. The proximal sciatic neurovascular bundle appears normal adjacent to the hamstring tendons. No free pelvic fluid. Bladder wall thickness is normal. Genitourinary structures and bowel loops appear normal where visualized. There is suggestion of a 1.4 cm left ovarian cyst. IMPRESSION: 1. Asymmetric moderate right hip joint osteoarthritis. Avascular necrosis in weight-bearing portion of right femoral head without significant surrounding edema. No acute fracture or dislocation. Slight deformity involving weight-bearing portion of right femoral head concerning for early collapse. No other area of marrow signal abnormality. 2. Distal right gluteus medius and minimus tendinosis. No other muscle or tendon signal abnormalities. 3. Suggestion of superior anterior right hip labral tear at 12 to 2 o'clock position. Dictated by: Albert Her M.D. on 02/12/2023 at 10:35 Approved by: Albert Her M.D. on 02/12/2023 at 10:39
== END ==
PROVIDERS: Family Provider Family Medicine; PCP Family Medicine; Referring Provider Family Medicine; Visit Provider Family Medicine
DX: M16.11 Unilateral primary osteoarthritis, right hip (principal); M87.051 Idiopathic aseptic necrosis of right femur
CPT/HCPCS: 73721

== ENCOUNTER → 2023-11-14 09:21 | Outpatient (CLI) | payer OTHER, SELFPAY ==
--- NOTE | 2023-11-14 09:22 | DI.MRI.S_ITS ---
PROCEDURE: MR HIP RT WO CON INDICATIONS: AVN TECHNIQUE: Noncontrast coronal T1 spin echo and STIR through the bony pelvis. Coronal and axial T2 fast spin echo with fat saturation, sagittal T1 spin echo, and oblique axial T2 fast spin echo with fat saturation through the hip. COMPARISON: [facility], MR, MR HIP RT WO CON, 02/11/2023, 18:51. FINDINGS: Image quality: Excellent. Incidental note is made of partially imaged nonspecific wall thickening of the urinary bladder measures up to 8 mm thickness, more prominent than on the prior exam, some of which commonly may be artifact from nondistention although cystitis, chronic urinary retention, infiltrative bladder wall process or other cause could be considered. Nonspecific prominent parauterine, pelvic vessels are also noted more prominent than on the prior exam may be an indication of pelvic venous insufficiency, pelvic congestion syndrome. Bones and joints: Abnormal heterogeneous geographic increased T2 weighted signal with peripheral low T2 signal consistent with known history of avascular necrosis of the right femoral head superior weight-bearing aspect relatively unchanged. Minimal flattening suggesting early findings of collapse unchanged. No new areas of abnormal signal, no MR evidence of expansion. Bone marrow of the pelvic ring and left proximal femur shows normal signal throughout. No fractures. Tendons and ligaments: Similar to prior exam there is mild increased T2 weighted signal in the distal attachments of the gluteus medius, and gluteus minimus. No muscle atrophy. The nearby proximal iliotibial band also appears intact. The iliopsoas tendon appears intact, without adjacent bursal fluid collections or evidence for impingement syndrome. The origin of the hamstring tendon is intact at the ischial tuberosity, as well as the associated sacrotuberous ligament. The straight and reflected heads of the rectus femoris muscle origin appear intact, as well as the conjoint tendon. Labrum and cartilage: New mild nonspecific thickening and increased T2 weighted signal in the ligamentum teres. Moderate diffuse cartilaginous thinning of the femoral head and acetabulum related to degenerative changes with marginal osteophytes, subchondral edema unchanged. Soft tissues: Visualized muscles demonstrate normal bulk and internal signal. The proximal sciatic neurovascular bundle appears normal adjacent to the hamstring tendons. No free pelvic fluid. IMPRESSION: Nonspecific wall thickening of the urinary bladder, more prominent than on the prior exam Nonspecific prominent parauterine vessels more than on the prior exam may be an indication of pelvic venous insufficiency. Known avascular necrosis of the right femoral head unchanged. Minimal flattening suggesting early findings of collapse unchanged. Mild increased T2 weighted signal in the distal attachments of the gluteus medius, and gluteus minimus unchanged. New mild nonspecific thickening and increased T2 weighted signal in the ligamentum teres. Moderate diffuse cartilaginous thinning of the femoral head and acetabulum related to degenerative changes with marginal osteophytes, subchondral edema unchanged. Continued follow-up suggested. Dictated by: Prashanth Pacheco M.D. on 11/16/2023 at 11:12 Approved by: Prashanth Pacheco M.D. on 11/16/2023 at 11:38
== END ==
LOC: MRI 09:21
PROVIDERS: Family Provider Family Medicine; PCP Family Medicine; Referring Provider Orthopaedic Surgery; Visit Provider Orthopaedic Surgery
DX: M25.551 Pain in right hip (principal); M87.9 Osteonecrosis, unspecified
CPT/HCPCS: 73721